=== PATIENT | female | born 1970 | race Caucasian/White ===

== ENCOUNTER 2016-09-19 09:30 | Emergency (ER) | payer BC ==
[~2016-09-19 09:30] MED LIST: ALEVE 220MG220 MG PO; AMOXICILLIN 8751 TAB PO; CYCLOBENZAPRINE10 MG PO; MORPHINE 1515 MG/TAB PO; MS CONTIN 660 MG/TAB PO; NEXIUM 40MG40 MG PEG; XANAX 1MG1 MG PO; ZOLPIDEM5 MG PO
[2016-09-19] MEDS ORDERED: XANAX2 MG PO (09:39)
[2016-09-19] MEDS ORDERED: NAPROSYN500 M1 PO (09:40)
[2016-09-19 11:33] VITALS: BP 125/86
== END 2016-09-19 11:39 | disposition home or self-care (01) ==
LOC: ED 09:30
DX: S92.354A Nondisplaced fracture of fifth metatarsal bone, right foot, initial encounter for closed fracture (principal); W10.8XXA Fall (on) (from) other stairs and steps, initial encounter; Y99.0 Civilian activity done for income or pay; Y92.219 Unspecified school as the place of occurrence of the external cause
CPT/HCPCS: L4360

== ENCOUNTER → 2016-09-29 | Outpatient (CLI) | payer BC ==
[~2016-09-29] MED LIST changes: +NAPROSYN500 M1 PO; +XANAX2 MG PO
== END ==
LOC: RAD 16:43
DX: M25.571 Pain in right ankle and joints of right foot (principal); S92.351A Displaced fracture of fifth metatarsal bone, right foot, initial encounter for closed fracture

== ENCOUNTER → 2018-02-27 | Outpatient (CLI) | payer SELFPAY | LOC: LAB 18:28 | DX: L02.91 Cutaneous abscess, unspecified (principal) ==